=== PATIENT | male | born 1940 | race Caucasian/White ===

== ENCOUNTER → 2019-05-10 | Outpatient (CLI) | payer MEDICARE, BC ==
[~2019-05-10] MED LIST: REGADENOSON 0.4 MG/5 ML SYRINGE ONE
== END | disposition home or self-care (01) ==
LOC: CFH 08:20
PROVIDERS: ATTEND Internal Medicine Cardiovascular Disease
DX: Z01.810 Encounter for preprocedural cardiovascular examination (principal); I21.19 ST elevation (STEMI) myocardial infarction involving other coronary artery of inferior wall; I10 Essential (primary) hypertension; I48.0 Paroxysmal atrial fibrillation; I42.9 Cardiomyopathy, unspecified
CPT/HCPCS: 78452; 93017; A9502; J2785

== ENCOUNTER 2019-10-27 11:09 | Day surgery (SDC) | payer MEDICARE, BC ==
[~2019-10-27] VITALS: Ht 172.7 cm; Wt 82.0 kg
[2019-10-27 12:02] VITALS: BP 160/82
[2019-10-27] MEDS ORDERED: CARV12.52 PO (12:09)
[2019-10-27] MEDS ORDERED: APIX5TAB PO (12:09)
[2019-10-27] MEDS ORDERED: VALS80TA3 PO (12:09)
[2019-10-27] MEDS ORDERED: PROPOFOL 10 MG/ML, 20ML ONE (12:20)
[2019-10-27 12:50] LABS: CHLORIDE 110 mmol/L (98-107)
[2019-10-27 12:54] LABS: CALCIUM 8.5 mg/dL (8.5-10.1); CREATININE 1.39 mg/dL (0.7-1.3)
[2019-10-27 13:08] LABS: ANION GAP 4 mmol/L (5-15)
[2019-10-27 13:11] LABS: MD YES; MEAN CORPUSCULAR HEMOGLOBIN 32.5 pg (27.5-34.5); MEAN CORPUSCULAR HGB CONC 32.6 g/dL (33.2-36.2); MEAN CORPUSCULAR VOLUME 99.4 fL (81-97); MEAN PLATELET VOLUME 8.4 fL (7.4-10.4); PLATELET COUNT 253 x10^3/uL (130-400); RED BLOOD COUNT 4.75 x10^6/uL (4.38-5.82); RED CELL DISTRIBUTION WIDTH 13.9 % (9.4-14.8)
[2019-10-27 13:26] LABS: <PLATELET ESTIMATE> ADEQUATE; <PLT MORPHOLOGY> NORMAL PLT MORPH; <RBC MORPHOLOGY> NORMAL; BAND#(MANUAL) 0.05 x10^3/uL; BANDS%(MANUAL) 1 % (0-7); BASOS#(MANUAL) 0.05 x10^3/uL (0-0.1); BASOS% (MANUAL) 1 % (0-1); EOS#(MANUAL) 0.11 x10^3/uL (0.0-0.4); EOS% (MANUAL) 2 % (1-7); LYMPH#(MANUAL) 2.01 x10^3/uL (1-3.4); LYMPHS% (MANUAL) 38 % (22-44); MONOS#(MANUAL) 0.48 x10^3/uL (0.3-2.7); MONOS% (MANUAL) 9 % (2-9); REACTIVE LYMPHS # (MANUAL) 0.05 x10^3/uL (0-0); REACTIVE LYMPHS % (MANUAL) 1 % (0-0); SEG#(MANUAL) 2.54 x10^3/uL (1.8-6.8); SEGS% (MANUAL) 48 % (42-75)
[2019-10-27] MEDS ORDERED: SODIUM CHLORIDE FLUSH 10ML SYR IVF SCH (21:00)
== END 2019-10-27 13:43 | disposition home or self-care (01) ==
LOC: CACL 11:09
PROVIDERS: ATTEND Internal Medicine Cardiovascular Disease
DX: I48.91 Unspecified atrial fibrillation (principal); I10 Essential (primary) hypertension; Z72.89 Other problems related to lifestyle; Z96.642 Presence of left artificial hip joint; Z98.890 Other specified postprocedural states; Z79.01 Long term (current) use of anticoagulants; Z79.899 Other long term (current) drug therapy
CPT/HCPCS: 36415; 80048; 85025; 92960; J2704